=== PATIENT | male | born 1975 | race Hispanic/Latino ===

== ENCOUNTER → 2021-06-17 | Outpatient (CLI) | payer BC ==
[~2021-06-17] MED LIST: ANUSHCS PR; ESOM40CA PO; SIMV40TA59 PO
== END | disposition home or self-care (01) ==
LOC: SLP 20:38
PROVIDERS: ATTEND Physician Assistant
DX: G47.33 Obstructive sleep apnea (adult) (pediatric) (principal); R06.83 Snoring; I10 Essential (primary) hypertension
CPT/HCPCS: 95810

== ENCOUNTER 2025-06-05 09:00 | Inpatient (IN) | payer BC ==
[~2025-06-05] VITALS: Ht 157.5 cm; Wt 164.7 kg
[2025-06-05 11:37] LABS: IMMATURE GRANULOCYTE ABSOLUTE 0.05 K/uL (0-1); NUCLEATED RED BLOOD CELLS 0.0 % (0.0-0.19); PLATELET COUNT (AUTO) 267 K/uL (130-400); RED BLOOD CELL COUNT(AUTO) 5.43 MIL/uL (4.50-6.20); RED CELL DISTRIBUTION WIDTH 13.5 % (11.0-15.5); WHITE BLOOD COUNT (AUTO) 9.5 K/uL (4.8-10.8)
[2025-06-05 11:52] LABS: INR 0.97 (0.85-1.15)
[2025-06-05 11:54] LABS: ASPARTATE AMINOTRANSFERASE 28.0 U/L (10-37); CREATININE 1.0 mg/dL (0.5-1.3); GLOMERULAR FILTR. RATE CALC 93.0 mL/min (>90); GLUCOSE,RANDOM 239.0 mg/dL (70-105); SODIUM SERUM 139.0 mmol/L (136-145); TOTAL PROTEIN, SERUM 7.3 g/dL (6.0-8.3); UREA NITROGEN, BLOOD 17.0 mg/dL (7-18)
[2025-06-05 12:35] VITALS: BP 179/77; PULSE 62; RESP 14; TEMP 98.4
[2025-06-05] MEDS ORDERED: OMEP40CA21 PO (12:39)
[2025-06-05] MEDS ORDERED: HYDR12.54 PO (12:39)
[2025-06-05] MEDS ORDERED: PROP80CA2 PO (12:39)
[2025-06-05] MEDS ORDERED: LOSA1TAB42 PO (12:39)
[2025-06-05] MEDS ORDERED: ROSUVASTATIN PO (12:39)
[2025-06-05] MEDS ORDERED: TIRZ5PEN SQ (12:39)
--- NOTE | 2025-06-05 13:08 | EKG ---
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
[2025-06-07] VITALS (24 sets, daily range): BP systolic 121–183; BP diastolic 66–111; PULSE 63–91; RESP 13–22; TEMP 96.6–98.1; O2SAT 99
[2025-06-07] MEDS: 0.9%NACL 1000ML 1,000 ML IV ONE (09:38)
[2025-06-07] MEDS: INVANZ 1GM+NS 50ML IVPB 50 ML IV ONE (09:38)
[2025-06-07] MEDS ORDERED: LIDOCAINE PF 100MG/5ML (2%) SYRINGE 5ML ONE (10:42)
[2025-06-07] MEDS ORDERED: NEOSTIGMINE METHYLSULFATE 1MG/ML IV ONE (10:43)
[2025-06-07] MEDS ORDERED: SUCCINYLCHOLINE CHLORIDE 20 MG/ML 10 ML VIAL ONE (10:43)
[2025-06-07] MEDS ORDERED: GLYCOPYRROLATE 0.2 MG/ML 5 ML VIAL ONE (10:43)
[2025-06-07] MEDS ORDERED: MIDAZOLAM HCL 1 MG/ML 2ML VIAL ONE (10:44)
[2025-06-07] MEDS ORDERED: LIDOCAINE 1%-EPI 1:100,000 20 ML VIAL ONE (10:45)
--- NOTE | 2025-06-07 11:56 | OP ---
Operative Note: DATE OF PROCEDURE: 06/07/25 SURGEON: AMBROCIO PARISI MD LEPIDOPTERIST: [None] ANESTHESIA: [General endotracheal anesthesia] ANESTHESIOLOGIST/TOOLROOM MACHINIST: [] PREOPERATIVE DIAGNOSIS: [Colon Polyp in the cecum] POSTOPERATIVE DIAGNOSIS: [Colon Polyp in the cecum] SYNOPSIS: [Good blood flow to anastomosis on firefly] PROCEDURE: [Robotic right colectomy. Creation of omental flap.] ESTIMATED BLOOD LOSS: [20 mL] INDICATIONS: [The patient is a very pleasant 49-year-old male presents to the office with a polyp in the cecum of the colon which was not amenable to endoscopic resection. The patient and his family were offered operative management. The complications, risks alternatives and benefits were discussed with the patient and family in detail. Risks include infection, bleeding, injury to surrounding structures, need for further surgery, leak from anastomosis, poor bowel function, recurrence, need for further procedures and . Hernia formation was also discussed. All questions were answered to their satisfaction and they all wished to proceed with the operation. ] DESCRIPTION OF PROCEDURE: [The patient is brought to the operating theater placed supine on the operating table. After appropriate general endotracheal anesthesia was administered and IV antibiotics given the patient is placed in the supine position. The abdomen was prepped and draped in appropriate sterile surgical fashion. Local anesthetic was injected in the Veress needle was used to insufflate the abdomen. Optiview technique was used to enter the abdomen without any injury to surrounding structures. The abdomen was explored and there was no evidence of other disease. Four other trocars were placed under direct visualization. A left upper quadrant incision was created and a wound protractor was placed. Because of the patient's morbid obesity, the trocars had to be repositioned higher on the abdomen through different incisions. The robot was docked in the usual sterile fashion. Attention was drawn to the right colon was mobilized along the white line of Toldt. The ileocolic vessels were isolated and transected. The remainder of the mesentery was ligated with the vessel sealer. The transverse colon was visualized and the omentum was dissected off of this. A omental flap was created with the vessel sealer. The bowel was then transected using a robotic endoscopic 60 mm stapler. Firefly was utilized to assure good blood flow to the segment of bowel for anastomosis. A [id number] anastomosis was created between the terminal ileum and the mid transverse colon. This was done with a 60 mm endoscopic robotic stapler. The entero colotomy was closed with a 3-0 absorbable V lock suture in 2 layers. Firefly was once again utilized to assure good blood flow. Excellent hemostasis was achieved. The omental flap was placed over the anastomosis. The fascia for the 12 mm trocar was closed with 0 Vicryl in the fascia for the Pfannenstiel incision was closed with 1. PDS in a running fashion. Skin incision was closed closed with Monocryl. Excellent hemostasis was achieved. There were no complications. The instrument, sponge and needle count reported as correct x2 by nursing staff. The patient was transferred to the recovery room in stable condition having tolerated the procedure very well. All the above could not be discussed with family because family was not available in waiting room.] AMBROCIO PARISI MD Jun 07, 2025 11:56
--- NOTE | 2025-06-07 18:15 | NUR ---
PT ARRIVED TO FLOOR AT BEDSIDE. TOTAL OF 9 INCISION WITH DERMA MACARIO and 2 PUNCTURE SITES. PT DROWSY STATES PAIN TO ABD. PT RECEIVED MORPHINE PRIOR TO TRANSFER. LAST BM PER PATIENT 06/07. BED POSITION TO LOWEST POSITION CALL LIGHT IN REACH.
[2025-06-07] MEDS: INDOCYANINE GREEN 25 MG VIAL IJ ONE (18:54)
[2025-06-07] MEDS: FAMOTIDINE 20MG VIAL IV ONE (18:54)
[2025-06-07] MEDS: SUGAMMADEX SODIUM 200 MG/2 ML VIAL IV ONE (18:54)
[2025-06-07] MEDS: D5W-1/2 NS/20MEQ KCL 1,000 ML IV SCH (18:55)
[2025-06-07] MEDS: FAMOTIDINE 20MG VIAL IV SCH (20:02)
[2025-06-07] MEDS: HYDROcodone/APAP 5/325 1 TAB TABLET PO PRN (20:03)
--- NOTE | 2025-06-07 20:29 | NUR ---
PAGED HOSPITALIST REGARDING PATIENT HYPERTENSIVE 165/100, RECHECK 179/103 PULSE 87. ADMINISTERED PAIN MEDICATION PER ORDERS. PENDING CALL BACK.
--- NOTE | 2025-06-07 20:42 | NUR ---
PAGE Spoke with Javier Childs Np mohs surgeon/general dermatologist for hospitalist regarding new admission and new medication ordered for hypertension and home medication Propranolol 80 mg HS resumed, see Emar.
[2025-06-07] MEDS: PROPRANOLOL HCL 20 MG TAB PO SCH (21:10)
[2025-06-08] VITALS (7 sets, daily range): BP systolic 141–162; BP diastolic 76–101; PULSE 61–91; RESP 18–22; TEMP 97.7–98.5; O2SAT 99
[2025-06-08 05:04] LABS: IMMATURE GRANULOCYTE ABSOLUTE 0.07 K/uL (0-1); NUCLEATED RED BLOOD CELLS 0.0 % (0.0-0.19); PLATELET COUNT (AUTO) 256 K/uL (130-400); RED BLOOD CELL COUNT(AUTO) 5.52 MIL/uL (4.50-6.20); RED CELL DISTRIBUTION WIDTH 13.1 % (11.0-15.5); WHITE BLOOD COUNT (AUTO) 14.0 K/uL (4.8-10.8)
[2025-06-08 05:17] LABS: CREATININE 1.2 mg/dL (0.5-1.3); GLOMERULAR FILTR. RATE CALC 75.0 mL/min (>90); GLUCOSE,RANDOM 202.0 mg/dL (70-105); SODIUM SERUM 135.0 mmol/L (136-145); UREA NITROGEN, BLOOD 13.0 mg/dL (7-18)
[2025-06-08 05:47] LABS: WBC MORPHOLOGY CONSISTENT W/DIFF
--- NOTE | 2025-06-08 08:17 | PN ---
[facility] PROGRESS NOTE Date of Visit: Jun 08, 2025 Time of Visit: 08:13 Events / Notes: This is a 49 yo male patient with a colon polyp in the cecum who underwent a robotic right colectomy with creation of omental flap. Patient' s VSS. WBC 14.0, hgb 15.3, hct 45.6, and platelets of 256. On exam patient is awake, alert, and oriented x3. His respirations are even and unlabored. With bilateral breath sounds clear. Patient has tolerated soft diet without any nausea or vomiting. Abdomen is soft, not distended, and nontender. Active bowel sounds are present. Surgical incisions are dry and intact with Dermabond and open to air. Patient has been able to void without any difficulties. He has ambulate without any difficulties. Plan of care discussed. Encourage ambulation and I/S exercises. Tentative plan for discharge in a.m. explained to patient and spouse. They both verbalized understanding and agreement. Review of Systems: CONSTITUTIONAL: No malaise or change in sensation of wellbeing. ENMT: No rhinorrhea, otorrhea, sinus pain, ear ache. CARDIOVASCULAR: No angina, palpitations, orthopnea or paroxysmal dyspnea. RESPIRATORY: No SOB. GASTROINTESTINAL: No abdominal pain, nausea, vomiting, diarrhea, hematemesis, melena or change in the patient's habitual bowel movements consistency/number. GENITOURINARY: No dysuria, hematuria or change in bladder continence. MUSCULOSKELETAL: No new muscle pain or decrease in muscular strength. No new joint swelling, redness or tenderness. SKIN: No new rash. Physical Exam: GEN: Awake, alert, oriented in person, time and place, and in no acute distress. HEENT: No rhinorrhea. Oral pharyngeal mucosa is pink, moist and within normal limits. CHEST: Inspection, palpation and percussion of the chest were unremarkable. Lung auscultation revealed normal breath sounds bilaterally. CARDIAC: PMI is within normal limits. Heart sounds are regular. ABD: Soft, non-tender and not distended. No peritoneal signs on palpation. No organomegaly. Normal bowel sounds. Incisions dry and intact CHARY. NUPUR drain with serosanguinous output. EXT: No cyanosis or clubbing. No edema. SKIN: Intact. No rashes. JOINTS: No evidence of synovitis or acute arthritis. NEURO: Alert and oriented to name, place and person. Cranial nerve examination is unremarkable. No focal motor deficits. Normal speech. Strength is normal. Vital Signs (last 8hr) Date Time Temp Pulse Resp B/P (MAP) Pulse Ox O2 Delivery O2 Flow Rate FiO2 06/08/25 04:00 97.7 79 20 162/92 99 Laboratory: [ ] Laboratory: Test 06/08/25 04:53 06/07/25 16:44 Range/Units White Blood Count 14.0 H 4.8-10.8 K/uL Red Blood Count 5.52 4.50-6.20 MIL/uL Hemoglobin 15.3 14.0-18.0 g/dL Hematocrit 45.6 42-54 % Mean Corpuscular Volume 82.6 79-99 fL Mean Corpuscular Hemoglobin 27.7 27.0-33.0 pg Mean Corpuscular Hemoglobin Concent 33.6 32.0-36.0 g/dL Red Cell Distribution Width 13.1 11.0-15.5 % Platelet Count 256 130-400 K/uL Mean Platelet Volume 10.1 7.5-10.5 fL Immature Granulocyte % (Auto) 0.5 0-1 % Neutrophils (%) (Auto) 82.7 H 40.0-77.0 % Lymphocytes (%) (Auto) 8.7 L 21.0-51.0 % Monocytes (%) (Auto) 7.6 3.0-13.0 % Eosinophils (%) (Auto) 0.4 0.0-8.0 % Basophils (%) (Auto) 0.1 0.0-5.0 % Neutrophils # (Auto) 11.6 H 1.8-7.7 K/uL Lymphocytes # (Auto) 1.2 1.0-4.8 K/uL Monocytes # (Auto) 1.1 H 0.1-1.0 K/uL Eosinophils # (Auto) 0.05 0.00-0.70 K/uL Basophils # (Auto) 0.02 0.00-0.20 K/uL Absolute Immature Granulocyte (auto 0.07 0-1 K/uL Nucleated Red Blood Cells 0.0 0.0-0.19 % White Cell Morphology Comment CONSISTENT W/DIFF Sodium Level 135 L 136-145 mmol/L Potassium Level 3.5 3.5-5.1 mmol/L Chloride Level 101 101-111 mmol/L Carbon Dioxide Level 25 21-32 mmol/L Blood Urea Nitrogen 13 7-18 mg/dL Creatinine 1.2 0.5-1.3 mg/dL Glomerular Filtration Rate Calc 75 >90 mL/min Random Glucose 202 H 70-105 mg/dL Total Calcium 8.5 8.5-10.1 mg/dL Whole Blood Glucose 175 H 70-110 MG/DL Current Medications Medications (Trade) Dose Ordered Sig/Neo Route PRN Reason Start Time Stop Time Status Last Admin Dose Admin Acetaminophen (TYLenol 325MG TAB) 650 mg Q4H PRN PO TEMPERATURE GREATER THAN 101 06/07/25 16:30 07/07/25 16:29 Acetaminophen/ Hydrocodone Bitart (NORco 5/325MG) 1 tab Q4H PRN PO MODERATE PAIN (4-6) 06/07/25 16:30 06/12/25 16:29 06/08/25 03:24 1 TAB Enoxaparin Sodium (Lovenox) 40 mg DAILY SQ 06/08/25 09:00 07/08/25 08:59 Famotidine (Pepcid 20mg Vial) 20 mg BID IV 06/07/25 21:00 07/07/25 20:59 06/07/25 20:02 20 MG Hydralazine HCl (APRESOLine 20MG INJ) 10 mg Q4H PRN IV ADMINISTER FOR SBP > 160 06/07/25 21:00 07/07/25 20:59 06/07/25 22:14 10 MG Insulin Human Regular (humuLIN R 100 UNIT/ML 3ML) AD PRN SQ SLIDING SCALE COVERAGE 06/07/25 16:30 07/07/25 16:29 Morphine Sulfate (morPHINE 4MG SYG) 4 mg Q3H PRN IV SEVERE PAIN (7-10) 06/07/25 16:30 06/14/25 16:29 06/07/25 21:59 4 MG Ondansetron HCl (zoFRAN 4MG INJ) 4 mg Q4H PRN IVP NAUSEA 06/07/25 16:30 07/07/25 16:29 Potassium Chloride/Dextrose/ Sod Cl 1,000 ml @ 75 mls/hr [id number] IV 06/07/25 16:30 07/07/25 16:29 06/07/25 18:55 75 MLS/HR Propranolol HCl (Inderal) 80 mg HS PO 7/30/25 21:00 07/07/25 20:59 06/07/25 21:10 80 MG Diagnostics / Radiology: [COPY/PASTE HERE IF NO REPORTS PLEASE DELETE SECTION] Assessment: [Cecal Mass Morbid Obesity ] Plan: [Advance diet as tolerated Pain meds as needed Encourage ambulation and I/s exercises Antiemetics prn Plan for disposition in the next 24-48 hours Please call with questions, concerns, and change in clinical status Appreciate hospitalist's assistance in our patient care. ] PHILIP REDDY NP Jun 08, 2025 08:17
--- NOTE | 2025-06-08 09:00 | NUR ---
RAI DC RAI DC. PT TOLERATED. TEACHING PROVIDED, DUE TO VOID 1500.
[2025-06-08] MEDS: ENOXAPARIN SODIUM 40 MG/0.4 ML SYRINGE SQ SCH (09:19)
[2025-06-08] MEDS: PoTASSium chloRIDE 20MEQ ER 20 MEQ ERTAB PO ONE (10:37)
--- NOTE | 2025-06-08 10:44 | NUR ---
DCP: HOME Pt currently lives at home with his sps Elana Degroot [phone]. pt currently does not have any insecurities with food, chcf, and/or utilities. Pt does not have any DME, home health, or provider services. Pt is able to complete ADLs independently. PCP is Samantha Mercado and uses [facility] for any RX needs. At OR pt will want to return home and family can assist with transportation. Addendum: 06/08/25 at 1046 by PONCHO LINTON SS Amended: Links added.
[2025-06-08] MEDS: LOSARTAN/HYDROCHLOROTHIAZIDE 50-12.5MG TABLET PO SCH (10:47)
[2025-06-08] MEDS ORDERED: HYDR-4060 PO (10:56)
[2025-06-08] MEDS ORDERED: DOCU-116 PO (10:56)
--- NOTE | 2025-06-08 12:15 | NUR ---
PT AMBULATING IN HALLWAY WITH
--- NOTE | 2025-06-08 12:45 | NUR ---
PT VOIDED, DENIES ANY PAIN AT THIS MOMENT.
--- NOTE | 2025-06-08 13:48 | PN ---
[facility] PROGRESS NOTE Date of Service: Jun 08, 2025 Time of Service: 13:46 SUBJECTIVE: This is a 49 yo male patient with a colon polyp in the cecum who underwent a robotic right colectomy with creation of omental flap 06/07/25. At the time of my visit patient comfortably in bed, alert oriented x3, case discussed with the RN, no acute events overnight. Patient remains on GI soft diet, advance diet as tolerated, discontinue Michelle catheter, pain meds as needed, encourage ambulation, antiemetics p.r.n., anticipate discharge home in the next 24-48 hours. Continue to follow Surgical input and recommendation REVIEW OF SYSTEMS CONSTITUTIONAL: Denies fevers, chills, or night sweats. No unintentional weight loss reported. NEUROLOGICAL: Denies headache, amaurosis fugax, motor weakness, sensory deficit, vertigo/spinning sensation, gait abnormalities, or tremors. ENT: No hearing loss, otalgia, otorrhea, rhinitis, rhinorrhea, hoarseness, or sore throat. CARDIOVASCULAR: Denies any exertional angina, dyspnea on exertion, orthopnea, paroxysmal nocturnal dyspnea, palpitations, life-threatening arrhythmias, claudication. PULMONARY: Denies any shortness of breath, cough, phlegm/sputum, hemoptysis, pleuritic chest pain. SLEEP: Denies morning headaches, daytime somnolence or napping. Denies di fficulty falling asleep, staying asleep, waking from sleep. Denies knowledge of snoring. GASTROINTESTINAL: Denies any type of dysphagia to either liquids or solids. Denies nausea, vomiting, pyrosis, early satiety, abdominal pain, diarrhea, constipation, or changes in stool consistency or caliber. Denies coffee-ground emesis, hematemesis, hematochezia, or melanotic stools. GENITOURINARY: Denies frequency, urgency, nocturia, hematuria or incontinence (Storage/Irritative symptoms.) Low urinary stream, straining to void, urinary intermittency or hesitancy, splitting of the voiding stream, terminal dribbling. ENDOCRINOLOGIC: Denies polyuria, polydipsia, polyphagia or heat/cold intolerances. HEMATOLOGIC: Denies thrombophilia/previous clots, or coagulopathy/bleeding disorders. ONCOLOGIC: Denies personal history of malignancy. DERMATOLOGIC: Denies rashes or pruritus. PSYCHIATRIC: Denies any suicidal or homicidal ideation. Denies hallucinations. PHYSICAL EXAM GENERAL APPEARANCE: The patient is awake, alert, and oriented, in no acute cardiopulmonary distress. NEUROLOGICAL: Cranial nerves II-XII grossly intact. Motor is 5/5 in bilateral upper and lower extremities proximal to distal. No sensory deficits. HEENT: Face is symmetric. Pupils are equal and reactive. Extraocular movements are intact. NECK: Supple. No JVD. No thyromegaly. No submental, submandibular, pre- /postauricular, occipital or supraclavicular lymphadenopathy. CHEST: Normal chest expansion. No Telemetry. LUNGS: Absence of any rales, rhonchi or any wheezing. CARDIOVASCULAR: Regular. S1 and S2 normal. No appreciable rubs, murmurs or gallops. ABDOMEN: Soft, nontender, and nondistended. There is no rebound, voluntary guarding, or rigidity. : Deferred. No Michelle. EXTREMITIES: Non-edematous and not cyanotic. No clubbing. Good capillary refill. SKIN: No skin breakdown. Vital Signs (last 8hr) Date Time Temp Pulse Resp B/P (MAP) Pulse Ox O2 Delivery O2 Flow Rate FiO2 06/08/25 12:00 98.1 61 20 159/86 98 Room Air 06/08/25 08:00 98.4 18 153/85 99 Nasal Cannula 3.0 LABS: Laboratory: Test 06/08/25 04:53 06/07/25 16:44 Range/Units White Blood Count 14.0 H 4.8-10.8 K/uL Red Blood Count 5.52 4.50-6.20 MIL/uL Hemoglobin 15.3 14.0-18.0 g/dL Hematocrit 45.6 42-54 % Mean Corpuscular Volume 82.6 79-99 fL Mean Corpuscular Hemoglobin 27.7 27.0-33.0 pg Mean Corpuscular Hemoglobin Concent 33.6 32.0-36.0 g/dL Red Cell Distribution Width 13.1 11.0-15.5 % Platelet Count 256 130-400 K/uL Mean Platelet Volume 10.1 7.5-10.5 fL Immature Granulocyte % (Auto) 0.5 0-1 % Neutrophils (%) (Auto) 82.7 H 40.0-77.0 % Lymphocytes (%) (Auto) 8.7 L 21.0-51.0 % Monocytes (%) (Auto) 7.6 3.0-13.0 % Eosinophils (%) (Auto) 0.4 0.0-8.0 % Basophils (%) (Auto) 0.1 0.0-5.0 % Neutrophils # (Auto) 11.6 H 1.8-7.7 K/uL Lymphocytes # (Auto) 1.2 1.0-4.8 K/uL Monocytes # (Auto) 1.1 H 0.1-1.0 K/uL Eosinophils # (Auto) 0.05 0.00-0.70 K/uL Basophils # (Auto) 0.02 0.00-0.20 K/uL Absolute Immature Granulocyte (auto 0.07 0-1 K/uL Nucleated Red Blood Cells 0.0 0.0-0.19 % White Cell Morphology Comment CONSISTENT W/DIFF Sodium Level 135 L 136-145 mmol/L Potassium Level 3.5 3.5-5.1 mmol/L Chloride Level 101 101-111 mmol/L Carbon Dioxide Level 25 21-32 mmol/L Blood Urea Nitrogen 13 7-18 mg/dL Creatinine 1.2 0.5-1.3 mg/dL Glomerular Filtration Rate Calc 75 >90 mL/min Random Glucose 202 H 70-105 mg/dL Total Calcium 8.5 8.5-10.1 mg/dL Magnesium Level 1.70 L 1.80-2.40 mg/dL Whole Blood Glucose 175 H 70-110 MG/DL Current Medications Medications (Trade) Dose Ordered Sig/Neo Route PRN Reason Start Time Stop Time Status Last Admin Dose Admin Acetaminophen (TYLenol 325MG TAB) 650 mg Q4H PRN PO TEMPERATURE GREATER THAN 101 06/07/25 16:30 07/07/25 16:29 Acetaminophen/ Hydrocodone Bitart (NORco 5/325MG) 1 tab Q4H PRN PO MODERATE PAIN (4-6) 06/07/25 16:30 06/12/25 16:29 06/08/25 10:38 1 TAB Atorvastatin Calcium (LIPItor 40MG) 40 mg HS PO 06/08/25 21:00 07/08/25 20:59 Enoxaparin Sodium (Lovenox) 40 mg DAILY SQ 06/08/25 09:00 07/08/25 08:59 06/08/25 09:19 40 MG Famotidine (Pepcid 20mg Vial) 20 mg BID IV 06/07/25 21:00 07/07/25 20:59 06/08/25 09:19 20 MG HCTZ/Losartan Potassium (Hyzaar 50-12.5 Tablet) 1 tab DAILY PO 06/08/25 09:30 07/08/25 09:29 06/08/25 10:47 1 TAB Hydralazine HCl (APRESOLine 20MG INJ) 5 mg Q4H PRN IV ADMINISTER FOR SBP > 160 06/08/25 13:00 07/08/25 12:59 Hydralazine HCl (APRESOLine 20MG INJ) 10 mg Q4H PRN IV ADMINISTER FOR SBP > 160 06/07/25 21:00 06/08/25 09:19 DC 06/07/25 22:14 10 MG Insulin Human Regular (humuLIN R 100 UNIT/ML 3ML) AD PRN SQ SLIDING SCALE COVERAGE 06/07/25 16:30 07/07/25 16:29 Morphine Sulfate (morPHINE 4MG SYG) 4 mg Q3H PRN IV SEVERE PAIN (7-10) 06/07/25 16:30 06/14/25 16:29 06/07/25 21:59 4 MG Ondansetron HCl (zoFRAN 4MG INJ) 4 mg Q4H PRN IVP NAUSEA 06/07/25 16:30 07/07/25 16:29 Potassium Chloride/Dextrose/ Sod Cl 1,000 ml @ 75 mls/hr [id number] IV 06/07/25 16:30 07/07/25 16:29 06/07/25 18:55 75 MLS/HR Propranolol HCl (Inderal) 80 mg HS PO 06/07/25 21:00 07/07/25 20:59 06/07/25 21:10 80 MG DIAGNOSTICS / RADIOLOGY: [ ] ASSESSMENT: colon polyp in the cecum s/p robotic right colectomy with creation of omental flap 06/07/25. PLAN: This is a 49 yo male patient with a colon polyp in the cecum who underwent a robotic right colectomy with creation of omental flap 06/07/25. At the time of my visit patient comfortably in bed, alert oriented x3, case discussed with the RN, no acute events overnight. Patient remains on GI soft diet, advance diet as tolerated, discontinue Michelle catheter, pain meds as needed, encourage ambulation, antiemetics p.r.n., anticip ate discharge home in the next 24-48 hours. Surgical input and recommendation NEURO: Minimize central acting medications as possible. Fall Precautions. Well lighted room through the day and minimize interruptions through the night to prevent acute delirium. PULMONARY: Supplemental 02 as needed BiPAP as necessary, for respiratory distress Titrate Fio2 to keep Spo2 > or = 90% DuoNebs and CPT as needed IS hourly while awake for pulmonary hygiene prn Out of bed to chair as tolerated Maintain aspiration precautions at all times CARDIOVASCULAR: Follow hemodynamics. Vital signs per facility protocol GI & NUTRITION: Continue nutritional support Aspirations precautions Prokinetic agents and laxatives as needed KIDNEYS & ELECTROLYTES: Strict monitoring of intake and output Daily weights Avoid nephrotoxic agents Monitor electrolytes and replace as needed Goal urine output of 30mL/hr or 0.5mL/kg/hr Medications to be dosed according to renal function. Avoid contrast if possible ENDOCRINE: Maintain blood glucose between 100-180 at all times. Insulin sliding scale for blood glucose management Hypoglycemia and hyperglycemia protocol in place INFECTIOUS DISEASE: Trend temperature, WBC and procalcitonin level Follow cultures, deescalate antibiotics as soon as possible. Panculture if new onset fever HEMATOLOGY & COAGULATION: Monitor H&H. Keep Hgb > 7 Transfuse 1 unit of PRBC for Hgb < 7 Transfuse 1 pack of platelets of platelets < 20, 000 Watch for any signs and symptoms of bleeding SKIN: Pressure ulcer prevention per facility protocol Specialty mattress as needed ORTHO/REHAB Continue PT/OT PRN: MEDICATIONS Tylenol 650 mg po every 4 hrs for fever zofran 4 mg IV every 6 hrs for n/v Hydralazine 5 mg IV every 4 hrs systolic pressure > 160 bowel regiment: lactulose 20 gm PO BID PRN constipation Supportive measures: Continue GI and DVT prophylaxis Disposition: Pending improvement in clinical condition All questions answered time spent: > 35 min SHAHEEN HOLLINGSWORTH MD Jun 08, 2025 13:48
[2025-06-08] MEDS ORDERED: MAGNESIUM 2GM PREMIX 50ML 50 ML IV SCH (14:00)
--- NOTE | 2025-06-08 19:45 | NUR ---
activity up ambulatory in hallway , steady gait, tolerated well , back to bed, encourage is with maximum volume inspiration of 2000,teach patient plan of care, pain management and expected outcome, patient verbalizes understanding via teach back
[2025-06-09] VITALS (8 sets, daily range): BP systolic 107–168; BP diastolic 71–97; PULSE 58–76; RESP 18–20; TEMP 97.6–98.7; O2SAT 95
[2025-06-09 05:54] LABS: IMMATURE GRANULOCYTE ABSOLUTE 0.10 K/uL (0-1); NUCLEATED RED BLOOD CELLS 0.0 % (0.0-0.19); PLATELET COUNT (AUTO) 227 K/uL (130-400); RED BLOOD CELL COUNT(AUTO) 5.22 MIL/uL (4.50-6.20); RED CELL DISTRIBUTION WIDTH 13.6 % (11.0-15.5); WHITE BLOOD COUNT (AUTO) 14.6 K/uL (4.8-10.8)
[2025-06-09 06:19] LABS: ASPARTATE AMINOTRANSFERASE 36.0 U/L (10-37); CREATININE 1.0 mg/dL (0.5-1.3); GLOMERULAR FILTR. RATE CALC 93.0 mL/min (>90); GLUCOSE,RANDOM 194.0 mg/dL (70-105); SODIUM SERUM 136.0 mmol/L (136-145); TOTAL PROTEIN, SERUM 6.8 g/dL (6.0-8.3); UREA NITROGEN, BLOOD 16.0 mg/dL (7-18)
--- NOTE | 2025-06-09 11:52 | PN ---
[facility] PROGRESS NOTE Date of Service: Jun 09, 2025 Time of Service: 11:50 SUBJECTIVE: This is a 49 yo male patient with a colon polyp in the cecum who underwent a robotic right colectomy with creation of omental flap 06/07/25. At the time of my visit patient comfortably in bed, alert oriented x3, case discussed with the RN, no acute events overnight. Patient remains on GI soft diet, advance diet as tolerated, discontinue Michelle catheter, pain meds as needed, encourage ambulation, antiemetics p.r.n., anticipate discharge home in the next 24-48 hours. Continue to follow Surgical input and recommendation 06/09/2025 patient was seen earlier he is fully awake alert oriented x3. Patient reports ambulating. Denies chest pain or shortness for breath patient reports has not pass fluctuance. Encouraged patient to continue ambulating in hallways possible discharge today versus tomorrow. REVIEW OF SYSTEMS CONSTITUTIONAL: Denies fevers, chills, or night sweats. No unintentional weight loss reported. NEUROLOGICAL: Denies headache, amaurosis fugax, motor weakness, sensory deficit, vertigo/spinning sensation, gait abnormalities, or tremors. ENT: No hearing loss, otalgia, otorrhea, rhinitis, rhinorrhea, hoarseness, or sore throat. CARDIOVASCULAR: Denies any exertional angina, dyspnea on exertion, orthopnea, paroxysmal nocturnal dyspnea, palpitations, life-threatening arrhythmias, claudication. PULMONARY: Denies any shortness of breath, cough, phlegm/sputum, hemoptysis, pleuritic chest pain. SLEEP: Denies morning headaches, daytime somnolence or napping. Denies difficulty falling asleep, staying asleep, waking from sleep. Denies knowledge of snoring. GASTROINTESTINAL: Denies any type of dysphagia to either liquids or solids. Denies nausea, vomiting, pyrosis, early satiety, abdominal pain, diarrhea, constipation, or changes in stool consistency or caliber. Denies coffee-ground emesis, hematemesis, hematochezia, or melanotic stools. GENITOURINARY: Denies frequency, urgency, nocturia, hematuria or incontinence (Storage/Irritative symptoms.) Low urinary stream, straining to void, urinary intermittency or hesitancy, splitting of the voiding stream, terminal dribbling. ENDOCRINOLOGIC: Denies polyuria, polydipsia, polyphagia or heat/cold intolerances. HEMATOLOGIC: Denies thrombophilia/previous clots, or coagulopathy/bleeding disorders. ONCOLOGIC: Denies personal history of malignancy. DERMATOLOGIC: Denies rashes or pruritus. PSYCHIATRIC: Denies any suicidal or homicidal ideation. Denies hallucinations. PHYSICAL EXAM GENERAL APPEARANCE: The patient is awake, alert, and oriented, in no acute cardiopulmonary distress. NEUROLOGICAL: Cranial nerves II-XII grossly intact. Motor is 5/5 in bilateral upper and lower extremities proximal to distal. No sensory deficits. HEENT: Face is symmetric. Pupils are equal and reactive. Extraocular movements are intact. NECK: Supple. No JVD. No thyromegaly. No submental, submandibular, pre-/postauricular, occipital or supraclavicular lymphadenopathy. CHEST: Normal chest expansion. No Telemetry. LUNGS: Absence of any rales, rhonchi or any wheezing. CARDIOVASCULAR: Regular. S1 and S2 normal. No appreciable rubs, murmurs or gallops. ABDOMEN: Soft, nontender, and nondistended. There is no rebound, voluntary guarding, or rigidity. : Deferred. No Michelle. EXTREMITIES: Non-edematous and not cyanotic. No clubbing. Good capillary refill. SKIN: No skin breakdown. Vital Signs (last 8hr) Date Time Temp Pulse Resp B/P (MAP) Pulse Ox O2 Delivery O2 Flow Rate FiO2 06/09/25 09:12 97.5 58 18 144/86 95 Room Air 06/09/25 08:00 95 Room Air* 0 21 06/09/25 08:00 97.5 58 18 144/86 95 Room Air LABS: Laboratory: Test 06/09/25 05:00 06/08/25 04:53 06/07/25 16:44 Range/Units White Blood Count 14.6 H 4.8-10.8 K/uL Red Blood Count 5.22 4.50-6.20 MIL/uL Hemoglobin 14.6 14.0-18.0 g/dL Hematocrit 43.3 42-54 % Mean Corpuscular Volume 83.0 79-99 fL Mean Corpuscular Hemoglobin 28.0 27.0-33.0 pg Mean Corpuscular Hemoglobin Concent 33.7 32.0-36.0 g/dL Red Cell Distribution Width 13.6 11.0-15.5 % Platelet Count 227 130-400 K/uL Mean Platelet Volume 10.7 H 7.5-10.5 fL Immature Granulocyte % (Auto) 0.7 0-1 % Neutrophils (%) (Auto) 66.9 40.0-77.0 % Lymphocytes (%) (Auto) 20.0 L 21.0-51.0 % Monocytes (%) (Auto) 11.5 3.0-13.0 % Eosinophils (%) (Auto) 0.4 0.0-8.0 % Basophils (%) (Auto) 0.5 0.0-5.0 % Neutrophils # (Auto) 9.8 H 1.8-7.7 K/uL Lymphocytes # (Auto) 2.9 1.0-4.8 K/uL Monocytes # (Auto) 1.7 H 0.1-1.0 K/uL Eosinophils # (Auto) 0.06 0.00-0.70 K/uL Basophils # (Auto) 0.08 0.00-0.20 K/uL Absolute Immature Granulocyte (auto 0.10 0-1 K/uL Nucleated Red Blood Cells 0.0 0.0-0.19 % Sodium Level 136 136-145 mmol/L Potassium Level 3.8 3.5-5.1 mmol/L Chloride Level 101 101-111 mmol/L Carbon Dioxide Level 27 21-32 mmol/L Blood Urea Nitrogen 16 7-18 mg/dL Creatinine 1.0 0.5-1.3 mg/dL Glomerular Filtration Rate Calc 93 >90 mL/min Random Glucose 194 H 70-105 mg/dL Total Calcium 8.3 L 8.5-10.1 mg/dL Magnesium Level 2.00 1.80-2.40 mg/dL Total Bilirubin 1.0 0.2-1.0 mg/dL Aspartate Amino Transf (AST/SGOT) 36 10-37 U/L Alanine Aminotransferase (ALT/SGPT) 40 12-78 U/L Alkaline Phosphatase 83 50-136 U/L Total Protein 6.8 6.0-8.3 g/dL Albumin 2.8 L 3.5-5.0 g/dL White Cell Morphology Comment CONSISTENT W/DIFF Whole Blood Glucose 175 H 70-110 MG/DL Current Medications Medications (Trade) Dose Ordered Sig/Neo Route PRN Reason Start Time Stop Time Status Last Admin Dose Admin Acetaminophen (TYLenol 325MG TAB) 650 mg Q4H PRN PO TEMPERATURE GREATER THAN 101 06/07/25 16:30 07/07/25 16:29 Acetaminophen/ Hydrocodone Bitart (NORco 5/325MG) 1 tab Q4H PRN PO MODERATE PAIN (4-6) 06/07/25 16:30 06/12/25 16:29 06/09/25 01:31 1 TAB Atorvastatin Calcium (LIPItor 40MG) 40 mg HS PO 06/08/25 21:00 07/08/25 20:59 06/08/25 20:07 40 MG Enoxaparin Sodium (Lovenox) 40 mg DAILY SQ 06/08/25 09:00 07/08/25 08:59 06/09/25 09:25 40 MG Famotidine (Pepcid 20mg Vial) 20 mg BID IV 06/07/25 21:00 07/07/25 20:59 06/08/25 20:07 20 MG HCTZ/Losartan Potassium (Hyzaar 50-12.5 Tablet) 1 tab DAILY PO 06/08/25 09:30 07/08/25 09:29 06/09/25 09:25 1 TAB Hydralazine HCl (APRESOLine 20MG INJ) 5 mg Q4H PRN IV ADMINISTER FOR SBP > 160 06/08/25 13:00 07/08/25 12:59 Hydralazine HCl (APRESOLine 20MG INJ) 10 mg Q4H PRN IV ADMINISTER FOR SBP > 160 06/07/25 21:00 06/08/25 09:19 DC 06/07/25 22:14 10 MG Insulin Human Regular (humuLIN R 100 UNIT/ML 3ML) AD PRN SQ SLIDING SCALE COVERAGE 06/07/25 16:30 07/07/25 16:29 Magnesium Sulfate 50 ml @ 0 mls/hr PROTOCOL IV 06/08/25 14:00 07/08/25 13:59 Morphine Sulfate (morPHINE 4MG SYG) 4 mg Q3H PRN IV SEVERE PAIN (7-10) 06/07/25 16:30 06/14/25 16:29 06/08/25 20:14 4 MG Ondansetron HCl (zoFRAN 4MG INJ) 4 mg Q4H PRN IVP NAUSEA 06/07/25 16:30 07/07/25 16:29 Potassium Chloride/Dextrose/ Sod Cl 1,000 ml @ 75 mls/hr [id number] IV 06/07/25 16:30 07/07/25 16:29 06/08/25 18:46 75 MLS/HR Propranolol HCl (Inderal) 80 mg HS PO 06/07/25 21:00 07/07/25 20:59 06/08/25 20:07 80 MG DIAGNOSTICS / RADIOLOGY: [ ] ASSESSMENT: colon polyp in the cecum s/p robotic right colectomy with creation of omental flap 06/07/25. PLAN: This is a 49 yo male patient with a colon polyp in the cecum who underwent a robotic right colectomy with creation of omental flap 06/07/25. Postop day two recuperating well, tolerating diet no nausea no vomiting no fever chills. Unable to pass gas encouraged patient to continue ambulating in hallways possible discharge today versus tomorrow waiting for surgical recommendations NEURO: Minimize central acting medications as possible. Fall Precautions. Well lighted room through the day and minimize interruptions through the night to prevent acute delirium. PULMONARY: Supplemental 02 as needed BiPAP as necessary, for respiratory distress Titrate Fio2 to keep Spo2 > or = 90% DuoNebs and CPT as needed IS hourly while awake for pulmonary hygiene prn Out of bed to chair as tolerated Maintain aspiration precautions at all times CARDIOVASCULAR: Follow hemodynamics. Vital signs per facility protocol GI & NUTRITION: Continue nutritional support Aspirations precautions Prokinetic agents and laxatives as needed KIDNEYS & ELECTROLYTES: Strict monitoring of intake and output Daily weights Avoid nephrotoxic agents Monitor electrolytes and replace as needed Goal urine output of 30mL/hr or 0.5mL/kg/hr Medications to be dosed according to renal function. Avoid contrast if possible ENDOCRINE: Maintain blood glucose between 100-180 at all times. Insulin sliding scale for blood glucose management Hypoglycemia and hyperglycemia protocol in place INFECTIOUS DISEASE: Trend temperature, WBC and procalcitonin level Follow cultures, deescalate antibiotics as soon as possible. Panculture if new onset fever HEMATOLOGY & COAGULATION: Monitor H&H. Keep Hgb > 7 Transfuse 1 unit of PRBC for Hgb < 7 Transfuse 1 pack of platelets of platelets < 20, 000 Watch for any signs and symptoms of bleeding SKIN: Pressure ulcer prevention per facility protocol Specialty mattress as needed ORTHO/REHAB Continue PT/OT PRN: MEDICATIONS Tylenol 650 mg po every 4 hrs for fever zofran 4 mg IV every 6 hrs for n/v Hydralazine 5 mg IV every 4 hrs systolic pressure > 160 bowel regiment: lactulose 20 gm PO BID PRN constipation Supportive measures: Continue GI and DVT prophylaxis Disposition: Pending improvement in clinical condition All questions answered time spent: > 35 min ATTESTATION BY PHYSICIAN I have seen and examined the patient. I reviewed the documentation, medical decision making, and treatment plan as noted by the mid-level provider above. I agree with the findings and plan of care. CLAU FERMIN MD, ELIZABETH NP Jun 09, 2025 11:52
--- NOTE | 2025-06-09 11:57 | DS ---
Discharge Summary Hospital Course Summary: This is a 49 yo male patient with a colon polyp in the cecum who underwent a robotic right colectomy with creation of omental flap 06/07/25. At the time of my visit patient comfortably in bed, alert oriented x3, case discussed with the RN, no acute events overnight. Patient remains on GI soft diet, advance diet as tolerated, discontinue Michelle catheter, pain meds as needed, encourage ambulation, antiemetics p.r.n., anticipate discharge home in the next 24-48 hours. Continue to follow Surgical input 06/09/2025 patient is clinically stable recuperating well postop day two. No nausea no vomiting tolerating diet no abdominal pain ambulating in hallways. We will follow with surgical services in one-week Procedure(s): Operative Note: DATE OF PROCEDURE: 06/07/25 SURGEON: AMBROCIO ALTAMIRANO MD FIBERGLASS TUBE MOLDER: [None] ANESTHESIA: [General endotracheal anesthesia] ANESTHESIOLOGIST/ANESTHESIOLOGIST ATTENDING: [] PREOPERATIVE DIAGNOSIS: [Colon Polyp in the cecum] POSTOPERATIVE DIAGNOSIS: [Colon Polyp in the cecum] SYNOPSIS: [Good blood flow to anastomosis on firefly] PROCEDURE: [Robotic right colectomy. Creation of omental flap.] ESTIMATED BLOOD LOSS: [20 mL] INDICATIONS: [The patient is a very pleasant 49-year-old male presents to the office with a polyp in the cecum of the colon which was not amenable to en doscopic resection. The patient and his family were offered operative management. The complications, risks alternatives and benefits were discussed with the patient and family in detail. Risks include infection, bleeding, injury to surrounding structures, need for further surgery, leak from anastomosis, poor bowel function, recurrence, need for further procedures and . Hernia formation was also discussed. All questions were answered to their satisfaction and they all wished to proceed with the operation. ] DESCRIPTION OF PROCEDURE: [The patient is brought to the operating theater placed supine on the operating table. After appropriate general endotracheal anesthesia was administered and IV antibiotics given the patient is placed in the supine position. The abdomen was prepped and draped in appropriate sterile surgical fashion. Local anesthetic was injected in the Veress needle was used to insufflate the abdomen. Optiview technique was used to enter the abdomen without any injury to surrounding structures. The abdomen was explored and there was no evidence of other disease. Four other trocars were placed under direct visualization. A left upper quadrant incision was created and a wound protractor was placed. Because of the patient's morbid obesity, the trocars had to be repositioned higher on the abdomen through different incisions. The robot was docked in the usual sterile fashion. Attention was drawn to the right colon was mobilized along the white line of Toldt. The ileocolic vessels were isolated and transected. The remainder of the mesentery was ligated with the vessel sealer. The transverse colon was v isualized and the omentum was dissected off of this. A omental flap was created with the vessel sealer. The bowel was then transected using a robotic endoscopic 60 mm stapler. Firefly was utilized to assure good blood flow to the segment of bowel for anastomosis. A [id number] anastomosis was created between the terminal ileum and the mid transverse colon. This was done with a 60 mm endoscopic robotic stapler. The entero colotomy was closed with a 3-0 absorbable V lock suture in 2 layers. Firefly was once again utilized to assure good blood flow. Excellent hemostasis was achieved. The omental flap was placed over the anastomosis. The fascia for the 12 mm trocar was closed with 0 Vicryl in the fascia for the Pfannenstiel incision was closed with 1. PDS in a running fashion. Skin incision was closed closed with Monocryl. Excellent hemostasis was achieved. There were no complications. The instrument, sponge and needle count reported as correct x2 by nursing staff. The patient was transferred to the recovery room in stable condition having tolerated the procedure very well. All the above could not be discussed with family because family was not available in waiting room.] AMBROCIO ALTAMIRANO MD Assessment/Plan: discharged dx's colon polyp in the cecum s/p robotic right colectomy with creation of omental flap 06/07/25. PLAN: ADMISSION DATE: 06/07/2025 DISCHARGE DATE: 06/09/2025 DISPOSITION: Home CONDITION: Stable POLISHER BALANCE SCREWHEAD(S): Colorectal surgeon catalyst for medical management FOLLOW UP APPOINTMENT(S): Dr. Altamirano one-week PROCEDURES: : [Robotic right colectomy. Creation of omental flap.] IMAGING (S) report attached to summary : MICROBIOLOGY: report attached to summary; ACTIVITY: Ad gertrude HOME MEDICATIONS remain the same CHANGES ON HOME MEDICATIONS none NEW MEDICATIONS pain management as directed and bowel regimen Colace as directed TEACHING: No heavy lifting greater than 10 lb until seen by surgical services. Emergency instructions: The patient was instructed to present to the nearest Emergency Department or call 911 should their symptoms return or worsen. Home Medications: Active Scripts Docusate Sodium (Colace) 100 Mg Capsule, 1 CAP PO BID PRN for constipation for 7 Days, #14 CAP 2 Refills Prov:SHAHEEN HOLLINGSWORTH MD 06/08/25 Hydrocodone/Acetaminophen (Hydrocodon-Acetaminophen 5-325) 5 Mg-325 Mg Tablet, 1 TAB PO Q4H PRN for MODERATE PAIN (4-6) for 3 Days, #18 TAB 0 Refills Prov:SHAHEEN HOLLINGSWORTH MD 06/08/25 Reported Medications Propranolol HCl (Propranolol HCl) 80 Mg Cap.sa.24h, 80 MG PO HS 06/05/25 [Rosuvastatin] No Conflict Check, 20 MG PO HS 06/05/25 Tirzepatide (Mounjaro) 5 Mg/0.5 Ml Pen.injctr, 5 MG SQ Thursday06/05/25 Omeprazole (Omeprazole) 40 Mg Capsule.dr, 40 MG PO AD PRN for HEARTBURN, CAP 06/05/25 Losartan/Hydrochlorothiazide (Losartan-Hctz 100-12.5 mg Tab) 100 Mg-12.5 Mg Tablet, 1 EACH PO AM, TAB 06/05/25 Discontinued Reported Medications Hydrochlorothiazide (Hydrochlorothiazide) 12.5 Mg Tablet, 12.5 MG PO AM, TAB 06/05/25 Simvastatin (ZOCOR) 40 Mg Tablet, 40 MG PO HS, TAB 10/11/14 Esomeprazole Magnesium (Nexium) 40 Mg Capsule.dr, 40 MG PO DAILY PRN for PHARMACY DOSING, CAP 09/26/14 Discontinued Scripts Hydrocortisone Acetate (Anusol-Hc Supp) 1 Supp/25 Mg Supp, 1 SUPP CO BID, #10 SUPP Prov:SARITA ESTRADA MD 11/23/14 New Medications: Docusate Sodium (Colace) 100 Mg Capsule 1 CAP PO BID PRN for constipation for 7 Days, #14 CAP 2 Refills Hydrocodone/Acetaminophen (Hydrocodon-Acetaminophen 5-325) 5 Mg-325 Mg Tablet 1 TAB PO Q4H PRN for MODERATE PAIN (4-6) for 3 Days, #18 TAB 0 Refills Continued Medications: Losartan/Hydrochlorothiazide (Losartan-Hctz 100-12.5 mg Tab) 100 Mg-12.5 Mg Tablet 1 EACH PO AM, TAB Omeprazole (Omeprazole) 40 Mg Capsule.dr 40 MG PO AD PRN for HEARTBURN, CAP Propranolol HCl (Propranolol HCl) 80 Mg Cap.sa.24h 80 MG PO HS [Rosuvastatin] () 20 MG PO HS Tirzepatide (Mounjaro) 5 Mg/0.5 Ml Pen.injctr 5 MG SQ THURSDAY Discontinued Medications: Hydrochlorothiazide (Hydrochlorothiazide) 12.5 Mg Tablet 12.5 MG PO AM, TAB ATTESTATION BY PHYSICIAN I have seen and examined the patient. I reviewed the documentation, medical decision making, and treatment plan as noted by the mid-level provider above. I agree with the findings and plan of care. CLAU FERMIN MD, ELIZABETH NP Jun 09, 2025 11:57
--- NOTE | 2025-06-09 12:13 | PN ---
COLORECTAL PROGRESS NOTE Date of Visit: Jun 09, 2025 Time of Visit: 12:09 Events / Notes: This is a 49 yo male patient with a colon polyp in the cecum who underwent a robotic right colectomy with creation of omental flap. Patient' s VSS. WBC 14.0, hgb 15.3, hct 45.6, and platelets of 256. On exam patient is awake, alert, and oriented x3. His respirations are even and unlabored. With bilateral breath sounds clear. Patient has tolerated soft diet without any nausea or vomiting. Abdomen is soft, not distended, and nontender. Active bowel sounds are present. NUPUR drain with serosanguineous output to left side of abdomen. Surgical i ncisions are dry and intact with Dermabond and open to air. Patient has been able to void without any difficulties. He has ambulate without any difficulties. Plan of care discussed. Encourage ambulation and I/S exercises. Tentative plan for discharge in a.m. explained to patient and spouse. They both verbalized understanding and agreement. 06/09/25: Patient's vital signs are stable. Patient has tolerated regular diet without any nausea or vomiting. Hemoglobin at 14.6 with platelets of 227 today but white count has trended up to 14.6. Patient has been able to void per self without any difficulties. On exam, his BBS are clear. His pain is controlled. Abdomen is soft and not distended with active bs present x 4. His incisions are dry and intact with some ecchymosis. No discharge present. He has not passed flatus. Plan for discharge this afternoon from colorectal standpoint if WBCs trend down and if patient is passing flatus after dulcolax suppository. Home care instructions with ER warnings explained. Patient is to keep follow-up appointment at our clinic on 06/22/2025 at 2:45 p.m. at [facility]. Review of Systems: CONSTITUTIONAL: No malaise or change in sensation of wellbeing. ENMT: No rhinorrhea, otorrhea, sinus pain, ear ache. CARDIOVASCULAR: No angina, palpitations, orthopnea or paroxysmal dyspnea. RESPIRATORY: No SOB. GASTROINTESTINAL: No abdominal pain, nausea, vomiting, diarrhea, hematemesis, melena or change in the patient's habitual bowel movements consistency/number. GENITOURINARY: No dysuria, hematuria or change in bladder continence. MUSCULOSKELETAL: No new muscle pain or decrease in muscular strength. No new joint swelling, redness or tenderness. SKIN: No new rash. Physical Exam: GEN: Awake, alert, oriented in person, time and place, and in no acute distress. HEENT: No rhinorrhea. Oral pharyngeal mucosa is pink, moist and within normal limits. CHEST: Inspection, palpation and percussion of the chest were unremarkable. Lung auscultation revealed normal breath sounds bilaterally. CARDIAC: PMI is within normal limits. Heart sounds are regular. ABD: Soft, non-tender and not distended. No peritoneal signs on palpation. No organomegaly. Normal bowel sounds. Incisions dry and intact CHARY. EXT: No cyanosis or clubbing. No edema. SKIN: Intact. No rashes. JOINTS: No evidence of synovitis or acute arthritis. NEURO: Alert and oriented to name, place and person. Cranial nerve examination is unremarkable. No focal motor deficits. Normal speech. Strength is normal. Vital Signs (last 8hr) Date Time Temp Pulse Resp B/P (MAP) Pulse Ox O2 Delivery O2 Flow Rate FiO2 06/09/25 09:12 97.5 58 18 144/86 95 Room Air 06/09/25 08:00 95 Room Air* 0 21 06/09/25 08:00 97.5 58 18 144/86 95 Room Air Laboratory: [ ] Laboratory: Test 06/09/25 05:00 06/08/25 04:53 06/07/25 16:44 Range/Units White Blood Count 14.6 H 4.8-10.8 K/uL Red Blood Count 5.22 4.50-6.20 MIL/uL Hemoglobin 14.6 14.0-18.0 g/dL Hematocrit 43.3 42-54 % Mean Corpuscular Volume 83.0 79-99 fL Mean Corpuscular Hemoglobin 28.0 27.0-33.0 pg Mean Corpuscular Hemoglobin Concent 33.7 32.0-36.0 g/dL Red Cell Distribution Width 13.6 11.0-15.5 % Platelet Count 227 130-400 K/uL Mean Platelet Volume 10.7 H 7.5-10.5 fL Immature Granulocyte % (Auto) 0.7 0-1 % Neutrophils (%) (Auto) 66.9 40.0-77.0 % Lymphocytes (%) (Auto) 20.0 L 21.0-51.0 % Monocytes (%) (Auto) 11.5 3.0-13.0 % Eosinophils (%) (Auto) 0.4 0.0-8.0 % Basophils (%) (Auto) 0.5 0.0-5.0 % Neutrophils # (Auto) 9.8 H 1.8-7.7 K/uL Lymphocytes # (Auto) 2.9 1.0-4.8 K/uL Monocytes # (Auto) 1.7 H 0.1-1.0 K/uL Eosinophils # (Auto) 0.06 0.00-0.70 K/uL Basophils # (Auto) 0.08 0.00-0.20 K/uL Absolute Immature Granulocyte (auto 0.10 0-1 K/uL Nucleated Red Blood Cells 0.0 0.0-0.19 % Sodium Level 136 136-145 mmol/L Potassium Level 3.8 3.5-5.1 mmol/L Chloride Level 101 101-111 mmol/L Carbon Dioxide Level 27 21-32 mmol/L Blood Urea Nitrogen 16 7-18 mg/dL Creatinine 1.0 0.5-1.3 mg/dL Glomerular Filtration Rate Calc 93 >90 mL/min Random Glucose 194 H 70-105 mg/dL Total Calcium 8.3 L 8.5-10.1 mg/dL Magnesium Level 2.00 1.80-2.40 mg/dL Total Bilirubin 1.0 0.2-1.0 mg/dL Aspartate Amino Transf (AST/SGOT) 36 10-37 U/L Alanine Aminotransferase (ALT/SGPT) 40 12-78 U/L Alkaline Phosphatase 83 50-136 U/L Total Protein 6.8 6.0-8.3 g/dL Albumin 2.8 L 3.5-5.0 g/dL White Cell Morphology Comment CONSISTENT W/DIFF Whole Blood Glucose 175 H 70-110 MG/DL Current Medications Medications (Trade) Dose Ordered Sig/Neo Route PRN Reason Start Time Stop Time Status Last Admin Dose Admin Acetaminophen (TYLenol 325MG TAB) 650 mg Q4H PRN PO TEMPERATURE GREATER THAN 101 06/07/25 16:30 07/07/25 16:29 Acetaminophen/ Hydrocodone Bitart (NORco 5/325MG) 1 tab Q4H PRN PO MODERATE PAIN (4-6) 06/07/25 16:30 06/12/25 16:29 06/09/25 01:31 1 TAB Atorvastatin Calcium (LIPItor 40MG) 40 mg HS PO 06/08/25 21:00 07/08/25 20:59 06/08/25 20:07 40 MG Enoxaparin Sodium (Lovenox) 40 mg DAILY SQ 06/08/25 09:00 07/08/25 08:59 06/09/25 09:25 40 MG Famotidine (Pepcid 20mg Vial) 20 mg BID IV 06/07/25 21:00 07/07/25 20:59 06/08/25 20:07 20 MG HCTZ/Losartan Potassium (Hyzaar 50-12.5 Tablet) 1 tab DAILY PO 06/08/25 09:30 07/08/25 09:29 06/09/25 09:25 1 TAB Hydralazine HCl (APRESOLine 20MG INJ) 5 mg Q4H PRN IV ADMINISTER FOR SBP > 160 06/08/25 13:00 07/08/25 12:59 Hydralazine HCl (APRESOLine 20MG INJ) 10 mg Q4H PRN IV ADMINISTER FOR SBP > 160 06/07/25 21:00 06/08/25 09:19 DC 06/07/25 22:14 10 MG Insulin Human Regular (humuLIN R 100 UNIT/ML 3ML) AD PRN SQ SLIDING SCALE COVERAGE 06/07/25 16:30 07/07/25 16:29 Magnesium Sulfate 50 ml @ 0 mls/hr PROTOCOL IV 06/08/25 14:00 07/08/25 13:59 Morphine Sulfate (morPHINE 4MG SYG) 4 mg Q3H PRN IV SEVERE PAIN (7-10) 06/07/25 16:30 06/14/25 16:29 06/08/25 20:14 4 MG Ondansetron HCl (zoFRAN 4MG INJ) 4 mg Q4H PRN IVP NAUSEA 06/07/25 16:30 07/07/25 16:29 Potassium Chloride/Dextrose/ Sod Cl 1,000 ml @ 75 mls/hr [id number] IV 06/07/25 16:30 07/07/25 16:29 06/08/25 18:46 75 MLS/HR Propranolol HCl (Inderal) 80 mg HS PO 06/07/25 21:00 07/07/25 20:59 06/08/25 20:07 80 MG Diagnostics / Radiology: [COPY/PASTE HERE IF NO REPORTS PLEASE DELETE SECTION] Assessment: [Cecal Mass Morbid Obesity ] Plan: Plan for discharge this afternoon from colorectal standpoint if WBCs trend down and if patient is passing flatus after dulcolax suppository. Home care instructions with ER warnings explained. Patient is to keep follow-up appointment at our clinic on 06/22/2025 at 2:45 p.m. at [facility]. [Continue with soft diet Pain meds as needed Encourage ambulation and I/s exercises Antiemetics prn follow-up appointment at our [facility] clinic on 06/22/2025 at 2:45 p.m. Plan for disposition in the next 24-48 hours Please call with CBC results. Please call with questions, concerns, and change in clinical status Appreciate hospitalist's assistance in our patient care. ] PHILIP REDDY NP Jun 09, 2025 12:13
[2025-06-09 14:07] LABS: IMMATURE GRANULOCYTE ABSOLUTE 0.08 K/uL (0-1); NUCLEATED RED BLOOD CELLS 0.0 % (0.0-0.19); PLATELET COUNT (AUTO) 296 K/uL (130-400); RED BLOOD CELL COUNT(AUTO) 5.54 MIL/uL (4.50-6.20); RED CELL DISTRIBUTION WIDTH 13.6 % (11.0-15.5); WHITE BLOOD COUNT (AUTO) 13.4 K/uL (4.8-10.8)
--- NOTE | 2025-06-09 19:00 | NUR ---
ACTIVITY AMBULATORY IN HALLWAY AROUND NURSES STATION ACCOMPANIED BY PATIENTS , NO COMPLAINTS AT THIS TIME, BACK TO ROOM, INSTRUCTED PATIENT TO CALL NURSE FOR ASSISTANCE, PASSING GAS, OR PAIN, INCISIONS ABDOMEN WITH DERMABOND X9 D/I
--- NOTE | 2025-06-09 20:00 | NUR ---
activity ambulatory in the hallway with , steady gait, no sob, no c/O PAIN, NOT PASSING GAS, TOLERATED WELL BACK TO BED
[2025-06-10 03:45] VITALS: BP 123/76; PULSE 63; RESP 16; TEMP 98.5
[2025-06-10 05:10] LABS: IMMATURE GRANULOCYTE ABSOLUTE 0.08 K/uL (0-1); NUCLEATED RED BLOOD CELLS 0.0 % (0.0-0.19); PLATELET COUNT (AUTO) 268 K/uL (130-400); RED BLOOD CELL COUNT(AUTO) 4.92 MIL/uL (4.50-6.20); RED CELL DISTRIBUTION WIDTH 13.4 % (11.0-15.5); WHITE BLOOD COUNT (AUTO) 12.9 K/uL (4.8-10.8)
[2025-06-10 05:17] LABS: CREATININE 0.9 mg/dL (0.5-1.3); GLOMERULAR FILTR. RATE CALC 105.0 mL/min (>90); GLUCOSE,RANDOM 150.0 mg/dL (70-105); SODIUM SERUM 137.0 mmol/L (136-145); UREA NITROGEN, BLOOD 15.0 mg/dL (7-18)
[2025-06-10] MEDS ORDERED: PoTASSium chl 10% ELIXIR 20MEQ 20 MEQ/15 ML UDCUP PO PRN (05:30)
[2025-06-10 08:00] VITALS: BP 129/65; PULSE 68; RESP 18; TEMP 98.3; O2SAT 98
[2025-06-10] MEDS: PoTASSium chloRIDE 20MEQ ER 20 MEQ ERTAB PO PRN (10:26)
--- NOTE | 2025-06-10 12:02 | NUR ---
DISCHARGE PATIENT GOT DISCHARGE ORDERS FROM STEPHANIE SMITH. REMOVED IVS, WOUNDS DRY AND INTACT. WHEELED PATIENT DOWN IN WHEELCHAIR FOR DC HOME.
== END 2025-06-10 12:00 | disposition home or self-care (01) | DRG 330 ==
LOC: DAHIP 06-07 08:48 → 4CH 06-07 18:13
PROVIDERS: ADMIT Internal Medicine; ATTEND Internal Medicine
PROC: 8E0W4CZ Robotic Assisted Procedure of Trunk Region, Percutaneous Endoscopic Approach (ICD-10-PCS; 2025-06-07)
PROC: 0DBF4ZZ Excision of Right Large Intestine, Percutaneous Endoscopic Approach (ICD-10-PCS; principal; 2025-06-07 14:15)
DX: K63.5 Polyp of colon (principal); Z68.44 Body mass index [BMI] 60.0-69.9, adult; E66.01 Morbid (severe) obesity due to excess calories; Z79.899 Other long term (current) drug therapy
CPT/HCPCS: 36415; 80048; 80053; 82948; 83735; 84132; 85025; 85610; 85730; 86850; 86900; 86901; 93005; A4344; G0378; J0330; J0360; J1100; J1335; J1650; J2003; J2250; J2270; J2371; J2405; J2704; J2710; J3010; J3475; J3480; J3490; J7030; A4215; A4216; A4221; A4222; A4223; A4600; A4649; A4663; A4930; A6260; C1769; J0665